=== PATIENT | male | born 1975 | race Caucasian/White ===

== ENCOUNTER 2017-03-06 07:17 | Inpatient (IN) | payer BC, OTHER ==
[~2017-03-06] VITALS: Ht 182.9 cm; Wt 98.3 kg
[~2017-03-06 07:17] MED LIST: DIPH25TA2 PO; MULT-506 PO; SENN8.6T7 PO
[2017-03-06] MEDS ORDERED: ONDANSETRON INJ 2 MG/ML 2 ML VIAL IV STA (07:35)
[2017-03-06] MEDS ORDERED: HYDROmorphone INJ 1 MG/ML SYR IV STA (07:35)
[2017-03-06] MEDS ORDERED: SODIUM CHLORIDE 0.9% 1000ML 1,000 ML IV STA (07:35)
[2017-03-06] MEDS ORDERED: NAPR1TAB9 PO (07:39)
--- NOTE | 2017-03-06 08:25 | EMERGENCY ROOM VISIT NOTE ---
History Report prepared by Sarah: Kenia Mclaughlin Under the Supervision of: Dr. Richardson Scherer M.D. First contact with patient: 07:27 Chief Complaint: ABDOMINAL PAIN Stated Complaint: GALL BLADDER PAIN,VOMITING Nursing Triage Summary: pt reports abdominal pain that started at 0200 with NV and pain that radiates into back , vomitted x 1 pt reports taking aleve around 0600 with non relief pt with cholecystectomy 10/23 was told that about 10% of gallbladder was left DT inflammation History of Present Illness The patient is a 41 year old male who presents to the Emergency Room with complaints of persistent abdominal pain starting last night. He rates his discomfort as a 9/10 in severity. He has pain in his abdomen and up between his shoulder blades. He took Aleve which did not give him significant relief. He has vomiting. He denies any fever, swelling in the legs, or rash. He has some pain with deep breathing. He has had a cholecystectomy in the past at which time part of his gallbladder was left in. He states that the pain is similar to the pain then. He denies any history of heart issues. Source of History: patient Onset: last night Position: abdomen Symptom Intensity: 9/10 Quality: other (pain) Timing: other (persistent) Modifying Factors (Worsening): breathing Associated Symptoms: + vomiting, No fevers, No rash Note: Pt denies swelling in legs. Review of Systems See HPI for pertinent positives & negatives. A total of 10 systems reviewed and were otherwise negative. Past Medical & Surgical Medical Problems: (1) Cholecystitis (2) Cholelithiasis (3) Epigastric abdominal pain (4) No pertinent past medical history Surgical Problems: (1) No pertinent past surgical history Family History Hypertension Social History Smoking Status: Current Every Day Smoker Drug Use: none Marital Status: Occupation Status: employed Current/Historical Medications Scheduled PRN Naproxen (Aleve), 220 MG PO UD PRN for Pain Allergies Coded Allergies: No Known Allergies (Unverified , 03/06/17) Physical Exam Vital Signs Date Time Temp Pulse Resp B/P Pulse Ox O2 Delivery O2 Flow Rate FiO2 03/06/17 10:04 95 Room Air 03/06/17 09:26 52 20 150/68 95 Room Air 03/06/17 08:26 52 20 134/81 94 Room Air 03/06/17 08:08 56 20 146/89 97 Room Air 03/06/17 07:22 36.4 60 18 144/86 96 Room Air Physical Exam GENERAL: Patient is uncomfortable appearing and in moderate distress. HEENT: No acute trauma, normocephalic atraumatic, mucous membranes moist, no nasal congestion, no scleral icterus. NECK: No stridor, no adenopathy, no meningismus, trachea is midline. LUNGS: No dyspnea. Clear to auscultation and equal bilaterally. No wheeze, no rhonchi. HEART: Regular rate and rhythm. No murmurs, rubs, gallops appreciated. ABDOMEN: Moderate epigastric/RUQ tenderness to palpation with partial guarding, no peritonitis. BACK: No midline tenderness, no CVA tenderness EXTREMITIES: Normal motion all extremities, no cyanosis, no edema. NEUROLOGIC: Alert and oriented, no acute motor or sensory deficits, no focal weakness, cranial nerves grossly intact. SKIN: No rash, no jaundice, no diaphoresis. Medical Decision & Procedures ER Provider Diagnostic Interpretation: Radiology results and stated below per my review and radiologist interpretation: ABDOMINAL ULTRASOUND, RIGHT UPPER QUADRANT HISTORY: epigastric pain. Partial cholecystectomy 5 months ago. COMPARISON: Abdominal ultrasound 10/27/2016. FINDINGS: Pancreas: The pancreas demonstrates a normal echotexture. Liver: The liver is echogenic consistent with fatty change. Gallbladder: The patient has reportedly had a partial cholecystectomy. The residual gallbladder is identified. This contains sludge and a few gallstones. Dominant stone at the neck of the gallbladder measures 1.7 cm. No gallbladder wall thickening at this time. CBD: 5 mm. Right kidney: No hydronephrosis. IMPRESSION: 1. The patient has reportedly had a partial cholecystectomy. The residual gallbladder is identified and contains sludge and a few gallstones. Dominant stone is located at the neck of the gallbladder and measures 1.7 cm. 2. Hepatic steatosis. Electronically signed by: Lito León M.D. 03/06/2017 9:30 AM Dictated Date/Time: 03/06/2017 9:27 AM Laboratory Results 03/06/17 08:00 Red Blood Count 6.05, Mean Corpuscular Volume 82.3, Mean Corpuscular Hemoglobin 30.9, Mean Corpuscular Hemoglobin Concent 37.6, Mean Platelet Volume 9.6, Neutrophils (%) (Auto) 85.3, Lymphocytes (%) (Auto) 9.5, Monocytes (%) (Auto) 4.3, Eosinophils (%) (Auto) 0.6, Basophils (%) (Auto) 0.2, Neutrophils # (Auto) 7.70, Lymphocytes # (Auto) 0.86, Monocytes # (Auto) 0.39, Eosinophils # (Auto) 0.05, Basophils # (Auto) 0.02 03/06/17 08:00 Test 03/06/17 08:00 White Blood Count 9.03 K/uL (4.8-10.8) Red Blood Count 6.05 M/uL (4.7-6.1) Hemoglobin 18.7 g/dL (14.0-18.0) Hematocrit 49.8 % (42-52) Mean Corpuscular Volume 82.3 fL (80-100) Mean Corpuscular Hemoglobin 30.9 pg (25-34) Mean Corpuscular Hemoglobin Concent 37.6 g/dl (32-36) Platelet Count 201 K/uL (130-400) Mean Platelet Volume 9.6 fL (7.4-10.4) Neutrophils (%) (Auto) 85.3 % Lymphocytes (%) (Auto) 9.5 % Monocytes (%) (Auto) 4.3 % Eosinophils (%) (Auto) 0.6 % Basophils (%) (Auto) 0.2 % Neutrophils # (Auto) 7.70 K/uL (1.4-6.5) Lymphocytes # (Auto) 0.86 K/uL (1.2-3.4) Monocytes # (Auto) 0.39 K/uL (0.11-0.59) Eosinophils # (Auto) 0.05 K/uL (0-0.5) Basophils # (Auto) 0.02 K/uL (0-0.2) RDW Standard Deviation 36.9 fL (36.4-46.3) RDW Coefficient of Variation 12.4 % (11.5-14.5) Immature Granulocyte % (Auto) 0.1 % Immature Granulocyte # (Auto) 0.01 K/uL (0.00-0.02) Microcytosis PRESENT Spherocytes 1+ Urine Color YELLOW Urine Appearance CLEAR (CLEAR) Urine pH 7.5 (4.5-7.5) Urine Specific [place] 1.022 (1.000-1.030) Urine Protein NEG (NEG) Urine Glucose (UA) NEG (NEG) Urine Ketones NEG (NEG) Urine Occult Blood NEG (NEG) Urine Nitrite NEG (NEG) Urine Bilirubin NEG (NEG) Urine Urobilinogen NEG (NEG) Urine Leukocyte Esterase NEG (NEG) Urine WBC (Auto) 0 /hpf (0-5) Urine RBC (Auto) 0-4 /hpf (0-4) Urine Hyaline Casts (Auto) 1-5 /lpf (0-5) Urine Epithelial Cells (Auto) 5-10 /lpf (0-5) Urine Bacteria (Auto) NEG (NEG) Anion Gap 8.0 mmol/L (3-11) Est Creatinine Clear Calc Drug Dose 129.6 ml/min Estimated GFR () 119.4 Estimated GFR (Non- 103.0 BUN/Creatinine Ratio 21.2 (10-20) Calcium Level 9.1 mg/dl (8.5-10.1) Total Bilirubin 2.9 mg/dl (0.2-1) Direct Bilirubin 0.3 mg/dl (0-0.2) Aspartate Amino Transf (AST/SGOT) 47 U/L (15-37) Alanine Aminotransferase (ALT/SGPT) 109 U/L (12-78) Alkaline Phosphatase 100 U/L (45-117) Troponin I < 0.015 ng/ml (0-0.045) Total Protein 7.7 gm/dl (6.4-8.2) Albumin 4.6 gm/dl (3.4-5.0) Lipase 111 U/L (73-393) Laboratory results as reviewed by me. Medications Administered Medications (Trade) Dose Ordered Sig/Niki Route Start Time Stop Time Status Last Admin Dose Admin Hydromorphone HCl (Dilaudid Inj) 1 mg NOW STAT IV 03/06/17 07:35 03/06/17 07:36 DC 03/06/17 07:35 1 MG Ondansetron HCl 4 mg 4 mg NOW STAT IV 03/06/17 07:35 03/06/17 07:36 DC 03/06/17 07:35 4 MG Sodium Chloride (Nss 1000ml) 1,000 ml @ 999 mls/hr Q1H1M STAT IV 03/06/17 07:35 03/06/17 08:35 DC 03/06/17 07:35 999 MLS/HR Cefoxitin Sodium (Mefoxin IV) 2,000 mg NOW STAT IV 03/06/17 09:49 03/06/17 09:50 DC 03/06/17 09:49 2,000 MG ECG Indication: abdominal pain Rate (beats per minute): 52 Rhythm: sinus bradycardia Findings: no acute ischemic change, no ectopy ED Course 0730: The patient was evaluated in room B9. A complete history and physical exam was performed. 0735: NSS 1000 ml @ 999 mls/hr IV, Zofran Inj 4 mg IV, Dilaudid Inj 1 mg IV. 0944: I discussed the patient's case with Dr. Herring, [facility] [place] Surgery. He thinks the patient should be brought in medically and seen by GI to see if they can get the stone. If not, he will see the patient. 0949: Mefoxin IV 2000 mg IV. 0954: Upon reevaluation, the patient is feeling better. He declines any pain medications currently. I discussed results and treatment plan with the patient. He verbalized understanding and agreement with the treatment plan. The patient will be evaluated for further management. 1007: I discussed the patient's case with Dr. Watson, [facility] hospitalist. The patient will be evaluated for further treatment and disposition. Medical Decision Differential: Cholecystitis, Gallbladder disfunction, Hepatic Disfunction, Gastritis/PUD, Pancreatitis, ACS, Aortic Pathology, amongst other pathologies entertained. 41 yr old male arrives with complaint of RUQ abdominal pain 5 months post partial-cholecystomy secondary to cholecystitis. Moderate distress here with no evidence sepsis and feeling much better after dilaudid. Moderate Bili elevation though history of Gilbert may muddy this a bit, though with elevated ALT I have some concern this is early cholecystitis. I feel this is blocked GB duct from the 1.7 cm stone that was seen on US. Clearly will need further work- up. Given empiric ABX. Discussed with Surgery and Hospitalist (who will bring him in). No evidence ACS nor dissection. Other labs look OK. Consults Time Called: [phone] Consulting Physician: Dr. Herring, [facility] General Surgery Returned Call: [phone] I discussed the patient's case with him. He thinks the patient should be brought in medically and seen by GI to see if they can get the stone. If not, he will see the patient. Additional Consults: Time Called: [phone] Consulted Physician: Dr. Watson, [facility] hospitalist Returned Call: [phone] Additional Comments: Discussed the patient's case. The patient will be evaluated for further treatment and disposition. Impression Primary Impression: Choledocholithiasis Additional Impression: Elevated liver enzymes Scribe Attestation The scribe's documentation has been prepared under my direction and personally reviewed by me in its entirety. I confirm that the note above accurately reflects all work, treatment, procedures, and medical decision making performed by me. Departure Information Dispostion Being Evaluated By Hospitalist Referrals No Doctor, Assigned (PCP) Patient Instructions My [facility] Problem Qualifiers
[2017-03-06 08:46] LABS: URINE APPEARANCE CLEAR (CLEAR); URINE BILIRUBIN NEG (NEG); URINE COLOR YELLOW; URINE NITRITE NEG (NEG); URINE PH 7.5 (4.5-7.5); URINE SPECIFIC GRAVITY 1.022 (1.000-1.030); UROBILINOGEN NEG (NEG); ZZUR CULT IF INDIC CLEAN CATCH NO
[2017-03-06 08:51] LABS: HEMATOCRIT 49.8 % (42-52); MEAN CELL VOLUME 82.3 fL (80-100); MEAN CORPUSCULAR HEMOGLOBIN 30.9 pg (25-34); MEAN CORPUSCULAR HGB CONC 37.6 g/dl (32-36); MEAN PLATELET VOLUME 9.6 fL (7.4-10.4); PLATELET COUNT 201 K/uL (130-400); RED BLOOD COUNT 6.05 M/uL (4.7-6.1); WHITE BLOOD COUNT 9.03 K/uL (4.8-10.8)
[2017-03-06 08:53] LABS: MANUAL MICROSCOPIC REQUIRED? NO; REVIEW REQ? NO
[2017-03-06 08:57] LABS: BASO % 0.2 %; BASO ABS # 0.02 K/uL (0-0.2); COMPLETE YES; EOS % 0.6 %; IG% 0.1 %; LYMPH % 9.5 %; LYMPH ABS # 0.86 K/uL (1.2-3.4); MICROCYTOSIS PRESENT; MONO % 4.3 %; NEUT % 85.3 %; SPHEROCYTE 1+
[2017-03-06 09:00] LABS: ALT/SGPT 109 U/L (12-78); BLOOD UREA NITROGEN 20 mg/dl (7-18); BUN/CREATININE RATIO 21.2 (10-20); CARBON DIOXIDE 28 mmol/L (21-32); CHLORIDE 103 mmol/L (98-107); CREATININE 0.93 mg/dl (0.60-1.40); GLUCOSE 106 mg/dl (70-99); POTASSIUM 3.6 mmol/L (3.5-5.1); SODIUM 139 mmol/L (136-145)
[2017-03-06 09:05] LABS: ALKALINE PHOSPHATASE 100 U/L (45-117); AST/SGOT 47 U/L (15-37)
[2017-03-06 09:06] LABS: CALCIUM 9.1 mg/dl (8.5-10.1)
--- NOTE | 2017-03-06 09:31 | DIAGNOSTIC IMAGING REPORT ---
ABDOMINAL ULTRASOUND, RIGHT UPPER QUADRANT HISTORY: epigastric pain. Partial cholecystectomy 5 months ago. COMPARISON: Abdominal ultrasound 10/27/2016. FINDINGS: Pancreas: The pancreas demonstrates a normal echotexture. Liver: The liver is echogenic consistent with fatty change. Gallbladder: The patient has reportedly had a partial cholecystectomy. The residual gallbladder is identified. This contains sludge and a few gallstones. Dominant stone at the neck of the gallbladder measures 1.7 cm. No gallbladder wall thickening at this time. CBD: 5 mm. Right kidney: No hydronephrosis. IMPRESSION: 1. The patient has reportedly had a partial cholecystectomy. The residual gallbladder is identified and contains sludge and a few gallstones. Dominant stone is located at the neck of the gallbladder and measures 1.7 cm. 2. Hepatic steatosis. Electronically signed by: Lito León M.D. 03/06/2017 9:30 AM Dictated Date/Time: 03/06/2017 9:27 AM
[2017-03-06] MEDS ORDERED: CEFOXITIN SOD 2 GM VIAL IV STA (09:49)
[2017-03-06 10:04] VITALS: O2SAT 95; Ht 182.9 cm; Wt 98.3 kg
--- NOTE | 2017-03-06 10:39 | History and Physical ---
History & Physical Date & Time of Service: Mar 06, 2017 at 10:26 Chief Complaint: Gall Bladder Pain,Vomiting Primary Care Physician: No Doctor, Assigned History of Present Illness Source: patient, spouse 41yo male with h/o subtotal cholecystectomy in 10/2016 who presents with abdominal pain that awoke him about 0200 this AM. The pain was located in the high epigastric area and radiated to the back/ scapula area. It was associated with nausea. He took alleve for the pain and unfortunately, about 0330, he had emesis. The pain has been constant since that time and feels quite similar to when he had his biliary pain last year. No chest pain or dyspnea. No fever or chills. He and his family ate at a fast food restaurant last pm. Past Medical/Surgical History PMH: 1. gallstones 2. asthma - mild, intermittent PSH: 1. subtotal cholecystectomy 2. 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) Multi-Drug Resistant Organisms History of MDRO: No Allergies Coded Allergies: No Known Allergies (Unverified , 03/06/17) Home Medications Scheduled PRN Naproxen (Aleve), 220 MG PO UD PRN for Pain Review of Systems Constitutional: + chills (in the ER), No fatigue, No fever, No weakness, No weight loss Eyes: No worsening of vision ENT: No nasal symptoms, No sore throat, No trouble swallowing Respiratory: No cough, No dyspnea at rest, No dyspnea on exertion Cardiovascular: No PND, No chest pain, No edema, No orthopnea Abdomen: + diarrhea (since he had cholecystectomy ), + nausea, + pain, + vomiting, No GI bleeding, No constipation Genitourinary - Male: No dysuria Neurologic: No numbness/tingling Psychiatric: No anxiety, No depression symptoms Endocrine: No fatigue Hematologic / Lymphatic: No abnormal bleeding/bruising Integumentary: No rash Physical Exam Vital Signs Date Time Temp Pulse Resp B/P Pulse Ox O2 Delivery O2 Flow Rate FiO2 03/06/17 10:04 95 Room Air 03/06/17 09:26 52 20 150/68 95 Room Air 03/06/17 08:26 52 20 134/81 94 Room Air 03/06/17 08:08 56 20 146/89 97 Room Air 03/06/17 07:22 36.4 60 18 144/86 96 Room Air General Appearance: WD/WN, no apparent distress Head: normocephalic, atraumatic Eyes: PERRL, sclerae normal (no icterus) ENT: hearing grossly normal, TMs normal, pharynx normal Neck: supple, no adenopathy, thyroid normal, no JVD Respiratory/Chest: lungs clear, normal breath sounds, no respiratory distress, no accessory muscle use Cardiovascular: no gallop, no murmur, normal peripheral pulses, + bradycardia Abdomen/GI: normal bowel sounds, soft, no organomegaly, + tenderness (high epigastric region), + pertinent finding (negative Paul's sign) Back: normal inspection Extremities/Musculoskelatal: no pedal edema Neurologic/Psych: no motor/sensory deficits, alert, normal mood/affect, normal reflexes, oriented x 3 Skin: normal color (no jaundice), no rash Lymphatic: no adenopathy (cervical ) Diagnostics Laboratory Results Results Past 24 Hours Test 03/06/17 08:00 Range/Units White Blood Count 9.03 4.8-10.8 K/uL Red Blood Count 6.05 4.7-6.1 M/uL Hemoglobin 18.7 14.0-18.0 g/dL Hematocrit 49.8 42-52 % Mean Corpuscular Volume 82.3 80-100 fL Mean Corpuscular Hemoglobin 30.9 25-34 pg Mean Corpuscular Hemoglobin Concent 37.6 32-36 g/dl Platelet Count 201 130-400 K/uL Mean Platelet Volume 9.6 7.4-10.4 fL Neutrophils (%) (Auto) 85.3 % Lymphocytes (%) (Auto) 9.5 % Monocytes (%) (Auto) 4.3 % Eosinophils (%) (Auto) 0.6 % Basophils (%) (Auto) 0.2 % Neutrophils # (Auto) 7.70 1.4-6.5 K/uL Lymphocytes # (Auto) 0.86 1.2-3.4 K/uL Monocytes # (Auto) 0.39 0.11-0.59 K/uL Eosinophils # (Auto) 0.05 0-0.5 K/uL Basophils # (Auto) 0.02 0-0.2 K/uL RDW Standard Deviation 36.9 36.4-46.3 fL RDW Coefficient of Variation 12.4 11.5-14.5 % Immature Granulocyte % (Auto) 0.1 % Immature Granulocyte # (Auto) 0.01 0.00-0.02 K/uL Microcytosis PRESENT Spherocytes 1+ Urine Color YELLOW Urine Appearance CLEAR CLEAR Urine pH 7.5 4.5-7.5 Urine Specific [place] 1.022 1.000-1.030 Urine Protein NEG NEG Urine Glucose (UA) NEG NEG Urine Ketones NEG NEG Urine Occult Blood NEG NEG Urine Nitrite NEG NEG Urine Bilirubin NEG NEG Urine Urobilinogen NEG NEG Urine Leukocyte Esterase NEG NEG Urine WBC (Auto) 0 0-5 /hpf Urine RBC (Auto) 0-4 0-4 /hpf Urine Hyaline Casts (Auto) 1-5 0-5 /lpf Urine Epithelial Cells (Auto) 5-10 0-5 /lpf Urine Bacteria (Auto) NEG NEG Sodium Level 139 136-145 mmol/L Potassium Level 3.6 3.5-5.1 mmol/L Chloride Level 103 98-107 mmol/L Carbon Dioxide Level 28 21-32 mmol/L Anion Gap 8.0 3-11 mmol/L Blood Urea Nitrogen 20 7-18 mg/dl Creatinine 0.93 0.60-1.40 mg/dl Est Creatinine Clear Calc Drug Dose 129.6 ml/min Estimated GFR () 119.4 Estimated GFR (Non- 103.0 BUN/Creatinine Ratio 21.2 10-20 Random Glucose 106 70-99 mg/dl Calcium Level 9.1 8.5-10.1 mg/dl Total Bilirubin 2.9 0.2-1 mg/dl Direct Bilirubin 0.3 0-0.2 mg/dl Aspartate Amino Transf (AST/SGOT) 47 15-37 U/L Alanine Aminotransferase (ALT/SGPT) 109 12-78 U/L Alkaline Phosphatase 100 45-117 U/L Troponin I < 0.015 0-0.045 ng/ml Total Protein 7.7 6.4-8.2 gm/dl Albumin 4.6 3.4-5.0 gm/dl Lipase 111 73-393 U/L Diagnostic Radiology gall bladder u/s: IMPRESSION: 1. The patient has reportedly had a partial cholecystectomy. The residual gallbladder is identified and contains sludge and a few gallstones. Dominant stone is located at the neck of the gallbladder and measures 1.7 cm. 2. Hepatic steatosis. EKG EKG: my reading - sinus bradycardia early repolarization (minimal J-point elevation) no ST changes no LVH by voltage criteria Impression Assessment and Plan 41yo male with h/o mild, intermittent asthma and subtotal cholecystectomy in 2015 presenting with abdominal pain and other GI symptoms concerning for biliary colic. LFTs are elevated but these appear chronically elevated (and there is no record of repeat LFTs following his surgery in October 2016 to check his overall trend ). His symptoms/signs are concerning for acute cholecystitis of the remaining portion of his gall bladder. 1. suspected biliary colic / concern of acute cholecystitis - NPO, IVF, pain meds, IV antibiotic therapy. Check blood cultures due to the chills he had in the ER. Gen surg consultation. MRCP now. He may need GI consultation depending on results of the MRCP. 2. h/o mild, intermittent asthma - not in exacerbation. Make albuterol available to him on prn basis. 3. FEN - NPO, IVF w/ D5NS with KCL at 150cc/hr. Repeat CMP in AM. 4. polycythemia - repeat CBC in am. Due to hemoconcentration? 5. DVT proph - SCDs for now until his care plan is fully defined. 6. elevated BP w/o dx of HTN - in 10/2016 he had multiple high BP readings. It simply may be due to pain but will need to follow carefully. no voltage criteria for LVH on EKG to suggest long-standing, untreated HTN. 7. abnormal LFTs - records indicate a history of Gilbert's syndrome and the elevated t. bili may be due to such. Transaminase elevation could be biliary related or due to his fatty liver. Regardless will recheck in AM. 8. Due to NPO status will place on pepcid IV q12h. Place on med/surg floor. updated at bedside. Level of Care Med/Surg Advanced Directives Existing Living Will: No Existing Power of Spoon Maker: No Resuscitation Status FULL RESUSCITATION VTE Prophylaxis Risk Level: Low Given or contraindicated: SCD's Note total visit time 60 minutes Additional Copies To Steffen Herring M.D.
[2017-03-06] MEDS ORDERED: ONDANSETRON INJ 2 MG/ML 2 ML VIAL IV PRN (11:00)
[2017-03-06] MEDS ORDERED: ALBUTEROL 0.083% NEBU SOLN 3 ML VIAL INH PRN (11:45)
[2017-03-06 12:13] VITALS: BP 158/98; PULSE 62; TEMP 36.6; O2SAT 93
[2017-03-06 12:34] VITALS: O2SAT 98
--- NOTE | 2017-03-06 12:39 | DIAGNOSTIC IMAGING REPORT ---
MRCP HISTORY: Right upper quadrant abdominal pain. check for CBD stone, etc TECHNIQUE: MRCP of the abdomen was performed according to standard departmental protocol without the use of contrast. COMPARISON STUDY: MRCP 10/27/2016. FINDINGS: There is a small amount pericholecystic edema/inflammatory change. There is a 2.2 cm stone at the neck of the gallbladder. Normal caliber common bile duct. No filling defects within the common bile duct. The main pancreatic duct is normal in course and caliber. No intrahepatic bile duct dilatation. Small T2 hyperintense lesion within the right hepatic lobe which measures 1 cm. This favors a cyst. The adrenal glands, kidneys, and pancreas are unremarkable. There are surgical clips adjacent to the gallbladder. Spleen is mildly enlarged measuring 15 cm in length. This is similar to the prior study. The common bile duct measures 5 mm in diameter. IMPRESSION: 1. There is a 2.2 cm stone at the neck of the gallbladder which could be impacted. There is associated pericholecystic edema/inflammatory change. Therefore, these findings are highly suspicious for acute cholecystitis. 2. Normal caliber common bile duct. No stones identified within the common bile duct. 3. Splenomegaly is again noted. Electronically signed by: Lito León M.D. 03/06/2017 12:37 PM Dictated Date/Time: 03/06/2017 12:33 PM
[2017-03-06] MEDS: D5NSS + 20MEQ KCL 1,000 ML IV SCH ×2 (13:15→21:05)
[2017-03-06] MEDS: AMPICILLIN/SULBACTAM SOD INJ 3,000 MG in SODIUM CHLORIDE 0.9% 100ML 100 ML IV SCH ×2 (13:15→19:48)
[2017-03-06] MEDS: HYDROmorphone INJ 0.5 MG/0.5 ML SYR IV PRN ×2 (13:59→21:07)
[2017-03-06 14:50] VITALS: BP 150/85; PULSE 58; TEMP 36.6; O2SAT 96
[2017-03-06] MEDS: FAMOTIDINE IV INJ 20 MG in DEXTROSE 5% 100ML 100 ML IV SCH (16:18)
[2017-03-06 19:24] VITALS: BP 153/92; PULSE 84; TEMP 36.6; O2SAT 98
[2017-03-06 23:23] VITALS: BP 146/96; PULSE 58; TEMP 36.6; O2SAT 96
[2017-03-07] MEDS: AMPICILLIN/SULBACTAM SOD INJ 3,000 MG in SODIUM CHLORIDE 0.9% 100ML 100 ML IV SCH ×4 (01:32→20:07)
[2017-03-07] MEDS: FAMOTIDINE IV INJ 20 MG in DEXTROSE 5% 100ML 100 ML IV SCH ×2 (03:54→15:42)
--- NOTE | 2017-03-07 04:58 | CONSULTATION REPORT ---
DATE OF CONSULTATION: 03/06/2017 SUMMARY: This is a 41-year-old gentleman that I was called early this morning from the ER where he presented with what appeared to be an acute cholecystitis with elevated liver function test. From the ER Description, patient has had a laparoscopic subtotal cholecystectomy due to significant inflammatory response in there. This was in October 2016. I asked him to admitted to the medical service, making sure there was no need for an ERCP ahead of time since his liver enzymes are elevated with a total bilirubin of 2.9 only, direct was 0.3. There was a question that he may have had Gilbert disease in the past. He was admitted to the medical service and we were consulted. As I see him now, Ruben is in no acute distress. His story was that he had an acute cholecystitis back in October [address] Dumont laparoscopically, but apparently with significant inflammatory tissue that he did a subtotal cholecystectomy at that time. An attempted cholangiogram was done, but I looked the films and there was no evidence of any visualization of the common bile duct by that test. He apparently has been well since then until he started having excruciating pain similar to what he has gallbladder earlier last evening. 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 FAMILY HISTORY: Hypertension. PAST SURGICAL HISTORY: As intermittent asthma and he had left knee arthroscopy. SOCIAL HISTORY: He is a never smoker and drinker. He lives in [place] with his family. ALLERGIES: He has no known allergies. MEDICATIONS: The only medicine he takes is an occasional anti-inflammatory agent. PHYSICAL EXAMINATION: GENERAL: As I see him now, he is resting comfortably in bed in no real distress. VITAL SIGNS: His last vitals showed a temperature of 36.6, pulse 58, respirations 18, blood pressure 150/85. HEAD: Normocephalic. EYES: PERRLA. Sclerae nonicteric. NECK: No cervical lymphadenopathy. HEART: Normal sinus. LUNGS: Clear. ABDOMEN: The supraumbilical incisions from the laparoscopic area has healed well as the other trocar site. He has no tenderness at this time. EXTREMITIES: Grossly normal. LABORATORY STUDY: They came in last night showed him WBC 9.03, does have a left shift. Chemistries as stated. The alkaline phosphatase was normal. He did undergo an MRCP at this time which showed no evidence of any common bile duct stones, but he does have a 2.2 cm stone in the neck of the gallbladder which confirmed the ultrasound findings. At this point, I discussed with patient that he will need the remaining and complete a cholecystectomy. It is nothing urgent that needs to be done at this time and actually he feels pretty good at this time, he was considering may be going home and schedule as an outpatient. At this point he is hungry, I will start him on some liquids tonight and see how he does by tomorrow. If tomorrow his clinical picture improves such then he certainly can be discharged on some antibiotics and follow up with Dr. Dumont in the office to make arrangements to proceed with further surgery. If he still has some pain then he should come here and I will discuss with Dr. Dumont on Wednesday morning and turn it over to his service. But at this time, there is nothing surgically that needs to be done. ELIANA
[2017-03-07 05:53] LABS: BASO % 0.4 %; BASO ABS # 0.03 K/uL (0-0.2); COMPLETE YES; EOS % 4.1 %; HEMATOCRIT 45.9 % (42-52); IG% 0.1 %; LYMPH % 17.1 %; LYMPH ABS # 1.37 K/uL (1.2-3.4); MEAN CELL VOLUME 83.9 fL (80-100); MEAN CORPUSCULAR HEMOGLOBIN 30.3 pg (25-34); MEAN CORPUSCULAR HGB CONC 36.2 g/dl (32-36); MEAN PLATELET VOLUME 9.1 fL (7.4-10.4); NEUT % 68.3 %; PLATELET COUNT 180 K/uL (130-400); RED BLOOD COUNT 5.47 M/uL (4.7-6.1)
[2017-03-07 06:25] LABS: BUN/CREATININE RATIO 14.2 (10-20); CREATININE 0.95 mg/dl (0.60-1.40); POTASSIUM 3.7 mmol/L (3.5-5.1)
[2017-03-07 06:31] LABS: ALB/GLOB RATIO 1.2 (0.9-2)
[2017-03-07 07:34] VITALS: BP 138/84; PULSE 56; TEMP 36.5; O2SAT 96
--- NOTE | 2017-03-07 09:55 | SURGERY PROGRESS NOTE ---
DATE: 03/07/2017 Ruben is still having some pain in the right upper quadrant, epigastric, and between the shoulder, although greatly improved. His last vitals showed a temperature of 36.5, pulse 56, respirations 17, blood pressure 138/84, O2 sats 94 on room air. He is tolerating some liquids. The abdomen is soft. He does have some deep right upper quadrant tenderness. It is my recommendation for him to stay here today, keep him n.p.o. after midnight, discuss the situation with Dr. Dumont and I would recommend proceeding with a completion cholecystectomy. I will leave that decision to Dr. Dumont/in the morning. The patient is agreeable to this.
--- NOTE | 2017-03-07 10:42 | Progress Note ---
Subjective Date of Service: Mar 07, 2017. Subjective Pt evaluation today including: conversation w/ patient, physical exam, lab review, review of studies, review of inpatient medication list Sitting OOBTC, tolerating po intake, clears liquid diet. Has some RUQ discomfort but not significant. Afebrile. Otherwise, no chest pain, no sob, no urinary symptoms. Problem List Medical Problems: (1) Choledocholithiasis Status: Acute (2) Elevated liver enzymes Status: Acute (3) Epigastric abdominal pain Status: Acute Review of Systems All Other Systems: Reviewed and Negative Medications Albuterol Sulfate (Ventolin 0.083% 2.5MG/3ML Neb) 2.5 mg Q4R PRN INH; Start at 11:45; Stop 04/05/17 at 11:44 Ampicillin Sodium/ Sulbactam Sodium/ Sodium Chloride (Unasyn Inj/Nss 100ml) 108 ml @ 200 mls/hr Q6@0200,0800,1400,2000 IV Last administered on 03/07/17 13:57 ; Admin Dose 200 MLS/HR; Start 03/06/17 at 14:00; Stop 03/16/17 at 13:59 Famotidine 20 mg/ Dextrose 102 ml @ 200 mls/hr Q12H IV Last administered on 03:54; Admin Dose 200 MLS/HR; Start 03/06/17 at 16:00; Stop 04/05/17 at 15:59 Hydromorphone HCl 0.5 mg 0.5 mg Q3H PRN IV Last administered on 03/06/17 21:07 ; Admin Dose 0.5 MG; Start 03/06/17 at 11:00; Stop 03/20/17 at 10:59 Ondansetron HCl (Zofran Inj) 4 mg Q6H PRN IV; Start 03/06/17 at 11:00; Stop at 10:59 Oxycodone/ Acetaminophen (Percocet 5-325mg Tab) 1 tab Q4H PRN PO; Start at 18:00; Stop 03/20/17 at 17:59 Potassium Chloride/Dextrose/ Sod Cl 1,000 ml @ 75 mls/hr [id number] IV Last administered on 03/07/17 10:49; Admin Dose 75 MLS/HR; Start 03/06/17 at 13:15; Stop 04/05/17 at 13:14 Objective Vital Signs Date Time Temp Pulse Resp B/P Pulse Ox O2 Delivery O2 Flow Rate FiO2 03/07/17 08:00 Room Air 03/07/17 07:34 36.5 56 17 138/84 96 Room Air 03/06/17 23:45 Room Air 03/06/17 23:23 36.6 58 16 146/96 96 Room Air 03/06/17 19:24 36.6 84 18 153/92 98 Room Air 03/06/17 16:10 Room Air 03/06/17 14:50 36.6 58 18 150/85 96 Room Air 03/06/17 12:34 98 Room Air 03/06/17 12:13 36.6 62 17 158/98 93 Room Air 03/06/17 11:32 76 20 175/85 97 Room Air Physical Exam Comments: nad ,aox3 anicteric, cohrent, fluent speech s1 s2 rrr, no murmurs appreciated ctab no w/r/r abd minimal RUQ tend, soft, nd +BS no LE edema Laboratory Results Last 24 Hours Test 03/07/17 05:20 White Blood Count 8.00 K/uL Red Blood Count 5.47 M/uL Hemoglobin 16.6 g/dL Hematocrit 45.9 % Mean Corpuscular Volume 83.9 fL Mean Corpuscular Hemoglobin 30.3 pg Mean Corpuscular Hemoglobin Concent 36.2 g/dl Platelet Count 180 K/uL Mean Platelet Volume 9.1 fL Neutrophils (%) (Auto) 68.3 % Lymphocytes (%) (Auto) 17.1 % Monocytes (%) (Auto) 10.0 % Eosinophils (%) (Auto) 4.1 % Basophils (%) (Auto) 0.4 % Neutrophils # (Auto) 5.46 K/uL Lymphocytes # (Auto) 1.37 K/uL Monocytes # (Auto) 0.80 K/uL Eosinophils # (Auto) 0.33 K/uL Basophils # (Auto) 0.03 K/uL RDW Standard Deviation 37.9 fL RDW Coefficient of Variation 12.5 % Immature Granulocyte % (Auto) 0.1 % Immature Granulocyte # (Auto) 0.01 K/uL Sodium Level 141 mmol/L Potassium Level 3.7 mmol/L Chloride Level 106 mmol/L Carbon Dioxide Level 32 mmol/L Anion Gap 3.0 mmol/L Blood Urea Nitrogen 14 mg/dl Creatinine 0.95 mg/dl Est Creatinine Clear Calc Drug Dose 126.8 ml/min Estimated GFR () 116.4 Estimated GFR (Non- 100.4 BUN/Creatinine Ratio 14.2 Random Glucose 97 mg/dl Calcium Level 8.0 mg/dl Total Bilirubin 4.3 mg/dl Direct Bilirubin 0.2 mg/dl Aspartate Amino Transf (AST/SGOT) 28 U/L Alanine Aminotransferase (ALT/SGPT) 82 U/L Alkaline Phosphatase 82 U/L Total Protein 6.5 gm/dl Albumin 3.6 gm/dl Globulin 2.9 gm/dl Albumin/Globulin Ratio 1.2 Lipase 100 U/L ABDOMINAL ULTRASOUND, RIGHT UPPER QUADRANT HISTORY: epigastric pain. Partial cholecystectomy 5 months ago. COMPARISON: Abdominal ultrasound 10/27/2016. FINDINGS: Pancreas: The pancreas demonstrates a normal echotexture. Liver: The liver is echogenic consistent with fatty change. Gallbladder: The patient has reportedly had a partial cholecystectomy. The residual gallbladder is identified. This contains sludge and a few gallstones. Dominant stone at the neck of the gallbladder measures 1.7 cm. No gallbladder wall thickening at this time. CBD: 5 mm. Right kidney: No hydronephrosis. IMPRESSION: 1. The patient has reportedly had a partial cholecystectomy. The residual gallbladder is identified and contains sludge and a few gallstones. Dominant stone is located at the neck of the gallbladder and measures 1.7 cm. 2. Hepatic steatosis. MRCP HISTORY: Right upper quadrant abdominal pain. check for CBD stone, etc TECHNIQUE: MRCP of the abdomen was performed according to standard departmental protocol without the use of contrast. COMPARISON STUDY: MRCP 10/27/2016. FINDINGS: There is a small amount pericholecystic edema/inflammatory change. There is a 2.2 cm stone at the neck of the gallbladder. Normal caliber common bile duct. No filling defects within the common bile duct. The main pancreatic duct is normal in course and caliber. No intrahepatic bile duct dilatation. Small T2 hyperintense lesion within the right hepatic lobe which measures 1 cm. This favors a cyst. The adrenal glands, kidneys, and pancreas are unremarkable. There are surgical clips adjacent to the gallbladder. Spleen is mildly enlarged measuring 15 cm in length. This is similar to the prior study. The common bile duct measures 5 mm in diameter. IMPRESSION: 1. There is a 2.2 cm stone at the neck of the gallbladder which could be impacted. There is associated pericholecystic edema/inflammatory change. Therefore, these findings are highly suspicious for acute cholecystitis. 2. Normal caliber common bile duct. No stones identified within the common bile duct. 3. Splenomegaly is again noted. Assessment and Plan 1. Cholecystitis - s/p partial cholecystectomy in Oct 2016 - MRCP as above - LFTs improving except for T Bili - tolerating some po - IVF, unasyn IV - await Dr. Dumont's recs 2. Splenomegaly - unclear etiology 3. Asthma -stable - prn nebs 4. dvt ppx enoxaparin
[2017-03-07] MEDS: D5NSS + 20MEQ KCL 1,000 ML IV SCH (10:49)
[2017-03-07 15:20] VITALS: BP 130/82; PULSE 57; TEMP 36.4; O2SAT 97
[2017-03-07 16:51] LABS: INR 1.1 (0.9-1.1); PARTIAL THROMBOPLASTIN RATIO 1.2; PROTHROMBIN TIME (PATIENT) 12.2 SECONDS (9.0-12.0)
[2017-03-07] MEDS ORDERED: ENOXAPARIN 40 MG/0.4 ML SYR SQ SCH (21:00)
[2017-03-08] MEDS: AMPICILLIN/SULBACTAM SOD INJ 3,000 MG in SODIUM CHLORIDE 0.9% 100ML 100 ML IV SCH ×4 (01:37→21:04)
[2017-03-08] MEDS: D5NSS + 20MEQ KCL 1,000 ML IV SCH ×2 (01:38→13:54)
[2017-03-08 01:52] VITALS: BP 127/83; PULSE 55; TEMP 36.6; O2SAT 98
[2017-03-08] MEDS: FAMOTIDINE IV INJ 20 MG in DEXTROSE 5% 100ML 100 ML IV SCH ×2 (03:59→15:30)
[2017-03-08 06:07] LABS: INR 1.2 (0.9-1.1); PROTHROMBIN TIME (PATIENT) 12.4 SECONDS (9.0-12.0)
[2017-03-08 06:29] LABS: BUN/CREATININE RATIO 9.6 (10-20); CALCIUM 8.4 mg/dl (8.5-10.1); CREATININE 0.99 mg/dl (0.60-1.40); POTASSIUM 3.5 mmol/L (3.5-5.1)
[2017-03-08 06:31] LABS: ALB/GLOB RATIO 1.2 (0.9-2)
[2017-03-08 07:47] VITALS: BP 134/87; PULSE 50; TEMP 36.8; O2SAT 98
--- NOTE | 2017-03-08 10:25 | History and Physical ---
History & Physical Date & Time of Service: March 08, 2017 at 10:05 Chief Complaint: Cholecystitis Primary Care Physician: No Doctor, Assigned History of Present Illness Source: patient, spouse 41yo male with h/o subtotal cholecystectomy in 10/2016 who presents with abdominal pain that awoke him about 0200 this AM. The pain was located in the high epigastric area and radiated to the back/ scapula area. It was associated with nausea. He took alleve for the pain and unfortunately, about 0330, he had emesis. The pain has been constant since that time and feels quite similar to when he had his biliary pain last year. No chest pain or dyspnea. No fever or chills. He and his family ate at a fast food restaurant last pm. I saw and did H/P on pt, and reviewed MRCP, now, pt feels better, less pain, no nausea, no vomiting. 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) Multi-Drug Resistant Organisms History of MDRO: No Allergies Coded Allergies: No Known Allergies (Unverified , 03/06/17) Home Medications Scheduled PRN Naproxen (Aleve), 220 MG PO UD PRN for Pain Review of Systems Constitutional: No chills, No fatigue, No fever, No problem reported, No sweats , No weakness, No weight loss Eyes: No diplopia, No discharge, No eye pain, No problem reported, No redness, No worsening of vision ENT: No dental problems, No hearing loss, No nasal symptoms, No problem reported, No sore throat, No tinnitus, No trouble swallowing, No unusual epistaxis Respiratory: No cough, No dyspnea at rest, No dyspnea on exertion, No hemoptysis, No problem reported, No shortness of breath, No sputum, No wheezing Cardiovascular: No PND, No chest pain, No claudication, No edema, No orthopnea , No palpitations, No problem reported Abdomen: + nausea, + pain Musculoskeletal: No calf pain, No joint pain, No muscle pain, No problem reported, No swelling Neurologic: No balance problems, No memory loss, No numbness/tingling, No paralysis, No problem reported, No vertigo, No weakness Psychiatric: No anhedonism, No anxiety, No depression symptoms, No insomnia, No problem reported, No substance abuse Endocrine: No excessive thirst, No excessive urination, No fatigue, No problem reported Physical Exam Vital Signs Date Time Temp Pulse Resp B/P Pulse Ox O2 Delivery O2 Flow Rate FiO2 03/08/17 07:50 Room Air 03/08/17 07:47 36.8 50 16 134/87 98 Room Air 03/08/17 01:52 36.6 55 16 127/83 98 Room Air 03/07/17 23:40 Room Air 03/07/17 15:35 Room Air 03/07/17 15:20 36.4 57 18 130/82 97 Room Air General Appearance: WD/WN, no apparent distress Head: normocephalic, atraumatic Eyes: PERRL, sclerae normal (no icterus) ENT: hearing grossly normal, TMs normal, pharynx normal Neck: supple, no adenopathy, thyroid normal, no JVD Respiratory/Chest: lungs clear, normal breath sounds, no respiratory distress, no accessory muscle use Cardiovascular: no gallop, no murmur, normal peripheral pulses, + bradycardia ( RUQ, no rebound pain) Abdomen/GI: normal bowel sounds, soft, no organomegaly, + tenderness (high epigastric region), + pertinent finding (negative Paul's sign) Back: normal inspection Extremities/Musculoskelatal: no pedal edema Neurologic/Psych: no motor/sensory deficits, alert, normal mood/affect, normal reflexes, oriented x 3 Skin: normal color (no jaundice), no rash Lymphatic: no adenopathy (cervical ) Diagnostics Laboratory Results Results Past 24 Hours Test 03/07/17 16:15 03/08/17 05:11 03/08/17 09:56 Range/Units Prothrombin Time 12.2 12.4 9.0-12.0 SECONDS Prothromb Time International Ratio 1.1 1.2 0.9-1.1 Activated Partial Thromboplast Time 30.2 21.0-31.0 SECONDS Partial Thromboplastin Ratio 1.2 Sodium Level 144 136-145 mmol/L Potassium Level 3.5 3.5-5.1 mmol/L Chloride Level 108 98-107 mmol/L Carbon Dioxide Level 32 21-32 mmol/L Anion Gap 4.0 3-11 mmol/L Blood Urea Nitrogen 10 7-18 mg/dl Creatinine 0.99 0.60-1.40 mg/dl Est Creatinine Clear Calc Drug Dose 121.7 ml/min Estimated GFR () 110.7 Estimated GFR (Non- 95.5 BUN/Creatinine Ratio 9.6 10-20 Random Glucose 87 70-99 mg/dl Calcium Level 8.4 8.5-10.1 mg/dl Total Bilirubin 4.1 0.2-1 mg/dl Aspartate Amino Transf (AST/SGOT) 28 15-37 U/L Alanine Aminotransferase (ALT/SGPT) 73 12-78 U/L Alkaline Phosphatase 79 45-117 U/L Total Protein 6.6 6.4-8.2 gm/dl Albumin 3.6 3.4-5.0 gm/dl Globulin 3.0 2.5-4.0 gm/dl Albumin/Globulin Ratio 1.2 0.9-2 Diagnostic Radiology MRCP HISTORY: Right upper quadrant abdominal pain. check for CBD stone, etc TECHNIQUE: MRCP of the abdomen was performed according to standard departmental protocol without the use of contrast. COMPARISON STUDY: MRCP 10/27/2016. FINDINGS: There is a small amount pericholecystic edema/inflammatory change. There is a 2.2 cm stone at the neck of the gallbladder. Normal caliber common bile duct. No filling defects within the common bile duct. The main pancreatic duct is normal in course and caliber. No intrahepatic bile duct dilatation. Small T2 hyperintense lesion within the right hepatic lobe which measures 1 cm. This favors a cyst. The adrenal glands, kidneys, and pancreas are unremarkable. There are surgical clips adjacent to the gallbladder. Spleen is mildly enlarged measuring 15 cm in length. This is similar to the prior study. The common bile duct measures 5 mm in diameter. IMPRESSION: 1. There is a 2.2 cm stone at the neck of the gallbladder which could be impacted. There is associated pericholecystic edema/inflammatory change. Therefore, these findings are highly suspicious for acute cholecystitis. 2. Normal caliber common bile duct. No stones identified within the common bile duct. 3. Splenomegaly is again noted. Impression Assessment and Plan IMP: S/P lap subtotal cholecystectomy, remain stone on remain gallbladder Plan, I recommend to do laparoscopic cholecystectomy, possible open, D/W benefits, risks and alternatives of the procedure, the risks- infection, bleeding, injury CBD, bowel, biliary leak, may need ERCP, , pt uand his understood, they agree with the plan, I answered all questions, ASA Classification: ASA Class II Advanced Directives Existing Living Will: No Existing Power of Client Technical Professional: No VTE Prophylaxis VTE Risk Assessment Done? Y/N: Yes Risk Level: Low Given or contraindicated: SCD's
--- NOTE | 2017-03-08 10:48 | Hospitalist Progress Note ---
Hospitalist Progress Note Date of Service March 08, 2017. Subjective Pt evaluation today including: conversation w/ patient, conversation w/ family , physical exam, chart review, lab review, review of studies, review of inpatient medication list Patient seen and evaluated. No acute events overnight. He continues to have some mild right upper quadrant tenderness that is manageable and has not been requiring pain medication. He denies nausea or vomiting. He denies fever/chills. He says he feels well. Evaluated by Dr. Dumont this morning with plans for cholecystectomy with possible open procedure. Surgical intervention planned for Wednesday. Additional Comments: REVIEW OF SYSTEMS: General/Constitutional: Denies fever/chills, fatigue, weakness ENT: Denies visual changes, nasal drainage, hearing loss, sore throat, trouble swallowing Cardiovascular: Denies chest pain, palpitations, edema Respiratory: Denies cough, sputum, SOB, wheezing, orthopnea GI: +RUQ abdominal pain (mild); Denies nausea, vomiting, constipation, diarrhea , melena/hematochezia : Denies dysuria, frequency, hematuria Musculoskeletal: Denies joint/muscle aches, weakness, swelling Neurologic: Denies dizziness/lightheadedness, numbness/tingling, weakness Psychiatric: Deferred Endocrine: Deferred Hematologic/Lymphatic: Denies bleeding/clotting abnormalities Skin: Denies rash, itch, new skin changes, easy bruising Allergy/Immunologic: Deferred Medications Current Inpatient Medications Medications (Trade) Dose Ordered Sig/Niki Route Start Time Stop Time Status Last Admin Dose Admin Ondansetron HCl (Zofran Inj) 4 mg Q6H PRN IV 03/06/17 11:00 04/05/17 10:59 Hydromorphone HCl 0.5 mg 0.5 mg Q3H PRN IV 03/06/17 11:00 03/20/17 10:59 03/06/17 21:07 0.5 MG Famotidine 20 mg/ Dextrose 102 ml @ 200 mls/hr Q12H IV 03/06/17 16:00 04/05/17 15:59 03/08/17 03:59 200 MLS/HR Potassium Chloride/Dextrose/ Sod Cl 1,000 ml @ 75 mls/hr [id number] IV 03/06/17 13:15 04/05/17 13:14 03/08/17 01:38 75 MLS/HR Ampicillin Sodium/ Sulbactam Sodium/ Sodium Chloride (Unasyn Inj/Nss 100ml) 108 ml @ 200 mls/hr Q6@0200,0800,1400,2000 IV 03/06/17 14:00 03/16/17 13:59 03/08/17 08:07 200 MLS/HR Albuterol Sulfate (Ventolin 0.083% 2.5MG/3ML Neb) 2.5 mg Q4R PRN INH 03/06/17 11:45 04/05/17 11:44 Oxycodone/ Acetaminophen (Percocet 5-325mg Tab) 1 tab Q4H PRN PO 03/06/17 18:00 03/20/17 17:59 Enoxaparin Sodium (Lovenox Inj) 40 mg HS SQ 03/07/17 21:00 04/06/17 20:59 03/07/17 20:08 40 MG Objective Vital Signs Date Time Temp Pulse Resp B/P Pulse Ox O2 Delivery O2 Flow Rate FiO2 03/08/17 07:50 Room Air 03/08/17 07:47 36.8 50 16 134/87 98 Room Air 03/08/17 01:52 36.6 55 16 127/83 98 Room Air 03/07/17 23:40 Room Air 03/07/17 15:35 Room Air 03/07/17 15:20 36.4 57 18 130/82 97 Room Air Physical Exam Notes: PHYSICAL EXAM:: General Appearance: WDWN in NAD who is A&O x 3 HEENT: Head is normocephalic/atraumatic; EOMI; PERRLA; Hearing grossly intact; Mucous membranes moist; Pharynx negative for exudate/lesions Neck: Supple; Trachea midline; Neg JVD; Neg lymphadenopathy Heart: RRR with no M/G/R Lungs: CTA in all lung cardenas bilaterally; Respirations unlabored; Neg accessory muscle use Abdomen: Soft, non-tender with mild palpation; non-distended; Positive BS x 4 quadrants; Neg organomegaly Extremities: Capillary refill < 2 seconds; Neg cyanosis or edema Neurological: Speech clear; Gross motor/sensory function intact; Neg focal neurologic deficits Psychiatric: Appropriate mood/affect Skin: Normal Color; Warm/Dry; Neg rashes, ecchymosis, lacerations/ulcerations Laboratory Results Last 24 Hours Test 03/07/17 16:15 03/08/17 05:11 03/08/17 09:56 Prothrombin Time 12.2 SECONDS 12.4 SECONDS Prothromb Time International Ratio 1.1 1.2 Activated Partial Thromboplast Time 30.2 SECONDS Partial Thromboplastin Ratio 1.2 Sodium Level 144 mmol/L Potassium Level 3.5 mmol/L Chloride Level 108 mmol/L Carbon Dioxide Level 32 mmol/L Anion Gap 4.0 mmol/L Blood Urea Nitrogen 10 mg/dl Creatinine 0.99 mg/dl Est Creatinine Clear Calc Drug Dose 121.7 ml/min Estimated GFR () 110.7 Estimated GFR (Non- 95.5 BUN/Creatinine Ratio 9.6 Random Glucose 87 mg/dl Calcium Level 8.4 mg/dl Total Bilirubin 4.1 mg/dl Aspartate Amino Transf (AST/SGOT) 28 U/L Alanine Aminotransferase (ALT/SGPT) 73 U/L Alkaline Phosphatase 79 U/L Total Protein 6.6 gm/dl Albumin 3.6 gm/dl Globulin 3.0 gm/dl Albumin/Globulin Ratio 1.2 Assessment and Plan Mr. Parson is a 41 y/o male with PMHx of S/P Subtotal Cholecystectomy who presents with RUQ abdominal pain. MRCP reveals stone in remaining GB with plans for total cholecystectomy Cholecystitis S/P Subtotal Cholecystectomy (Poor Anatomy Visualization): Plans for Complete Cholecystectomy - LFTs with improvement but T Bili remains elevated - lab today pending - Tolerating current diet - Unasyn 3 g IV q6H - D5 NSS + 20 mEq KCl - Pepcid 20 mg IV BID - General Surgery following - recommendations reviewed - plan for cholecystectomy on Wednesday Splenomegaly - Unclear Etiology Asthma without Exacerbation: Controlled - Nebulizers PRN DVT Prophylaxis: ARY/SCDs/Ambulation Code Status: FULL RESUSCITATION Disposition: Cholecystectomy 03/10/17 Continued [facility] stay due to: multiple IV medications needed Discharge planning: home
[2017-03-08] MEDS ORDERED: HYDROmorphone INJ 1 MG/ML SYR IV PRN (12:15)
[2017-03-08 15:38] VITALS: BP 123/79; PULSE 56; TEMP 36.5; O2SAT 99
[2017-03-08 22:21] VITALS: BP 131/86; PULSE 48; TEMP 36.4; O2SAT 99
[2017-03-08 23:20] VITALS: PULSE 51
[2017-03-09] MEDS: AMPICILLIN/SULBACTAM SOD INJ 3,000 MG in SODIUM CHLORIDE 0.9% 100ML 100 ML IV SCH ×4 (01:39→19:38)
[2017-03-09] MEDS: D5NSS + 20MEQ KCL 1,000 ML IV SCH ×2 (02:44→15:45)
[2017-03-09] MEDS: FAMOTIDINE IV INJ 20 MG in DEXTROSE 5% 100ML 100 ML IV SCH ×2 (03:35→16:23)
[2017-03-09 06:51] LABS: BUN/CREATININE RATIO 8.9 (10-20); CALCIUM 8.7 mg/dl (8.5-10.1); POTASSIUM 3.6 mmol/L (3.5-5.1)
[2017-03-09 06:53] LABS: ALB/GLOB RATIO 1.2 (0.9-2)
[2017-03-09 07:15] VITALS: BP 114/82; PULSE 50; TEMP 36.4; O2SAT 99
--- NOTE | 2017-03-09 10:56 | Surgery Progress Note ---
Surgery Progress Note Date of Service March 09, 2017. Subjective Post OP Day: HD # 3 + diet, + feeling well, + pain controlled, No SOB, No chest pain, No complaints Objective Vital Signs: Date Time Temp Pulse Resp B/P Pulse Ox O2 Delivery O2 Flow Rate FiO2 03/09/17 07:15 36.4 50 15 114/82 99 Room Air 03/09/17 07:00 Room Air 03/08/17 23:20 51 03/08/17 23:20 Room Air 03/08/17 22:21 36.4 48 16 131/86 99 Room Air 03/08/17 15:38 36.5 56 18 123/79 99 Room Air 03/08/17 15:15 Room Air General Appearance: WD/WN, no apparent distress Head: normocephalic, atraumatic Neck: trachea midline Respiratory/Chest: no respiratory distress, no accessory muscle use Abdomen: non tender, non distended, soft Laboratory Results: Results Past 24 Hours Test 03/09/17 05:21 Range/Units Sodium Level 142 136-145 mmol/L Potassium Level 3.6 3.5-5.1 mmol/L Chloride Level 105 98-107 mmol/L Carbon Dioxide Level 31 21-32 mmol/L Anion Gap 6.0 3-11 mmol/L Blood Urea Nitrogen 9 7-18 mg/dl Creatinine 1.00 0.60-1.40 mg/dl Est Creatinine Clear Calc Drug Dose 120.5 ml/min Estimated GFR () 109.4 Estimated GFR (Non- 94.4 BUN/Creatinine Ratio 8.9 10-20 Random Glucose 90 70-99 mg/dl Calcium Level 8.7 8.5-10.1 mg/dl Total Bilirubin 4.3 0.2-1 mg/dl Aspartate Amino Transf (AST/SGOT) 31 15-37 U/L Alanine Aminotransferase (ALT/SGPT) 74 12-78 U/L Alkaline Phosphatase 77 45-117 U/L Total Protein 6.7 6.4-8.2 gm/dl Albumin 3.6 3.4-5.0 gm/dl Globulin 3.1 2.5-4.0 gm/dl Albumin/Globulin Ratio 1.2 0.9-2 Lipase 113 73-393 U/L Assessment & Plan History of partial cholecystectomy in October 2016 Presented to hospital with RUQ abdominal pain similar to pain prior to cholecystectomy US and MRCP showing 2.2 cm gallstone in the neck of gallbladder Total bilirubin 4.3 History of Gilbert Syndrome?? Total bilirubin in October 2016 was also elevated - no leukocytosis - pain minimal - afebrile Plan: Plan for Laparoscopic cholecystectomy tomorrow morning at 7 am. NPO after midnight Continue current management per medicine Dr. Dumont has seen patient and agrees with above assessment
[2017-03-09 15:00] VITALS: BP 119/71; PULSE 56; TEMP 36.5; O2SAT 98
--- NOTE | 2017-03-09 15:39 | Progress Note ---
Subjective Date of Service: March 09, 2017. Subjective Pt evaluation today including: conversation w/ patient, physical exam, conversation w/ energy sales consultant, review of inpatient medication list Pain: no pain PO Intake: adequate Voiding: no voiding problems no issues, awaiting OR tomorrow AM Problem List Medical Problems: (1) Choledocholithiasis Status: Acute (2) Elevated liver enzymes Status: Acute (3) Epigastric abdominal pain Status: Acute Review of Systems All Other Systems: Reviewed and Negative Medications Current Inpatient Medications Medications (Trade) Dose Ordered Sig/Niki Route Start Time Stop Time Status Last Admin Dose Admin Ondansetron HCl 4 mg 4 mg Q6H PRN IV 03/06/17 11:00 04/05/17 10:59 Famotidine 20 mg/ Dextrose 102 ml @ 200 mls/hr Q12H IV 03/06/17 16:00 04/05/17 15:59 03/09/17 03:35 200 MLS/HR Potassium Chloride/Dextrose/ Sod Cl 1,000 ml @ 75 mls/hr [id number] IV 03/06/17 13:15 04/05/17 13:14 03/09/17 02:44 75 MLS/HR Ampicillin Sodium/ Sulbactam Sodium/ Sodium Chloride (Unasyn Inj/Nss 100ml) 108 ml @ 200 mls/hr Q6@0200,0800,1400,2000 IV 03/06/17 14:00 03/16/17 13:59 03/09/17 14:38 200 MLS/HR Albuterol Sulfate (Ventolin 0.083% 2.5MG/3ML Neb) 2.5 mg Q4R PRN INH 03/06/17 11:45 04/05/17 11:44 Oxycodone/ Acetaminophen (Percocet 5-325mg Tab) 1 tab Q4H PRN PO 03/06/17 18:00 03/20/17 17:59 Hydromorphone HCl (Dilaudid Inj) 0.5 mg Q3H PRN IV 03/08/17 12:15 03/20/17 10:59 Objective Vital Signs Date Time Temp Pulse Resp B/P Pulse Ox O2 Delivery O2 Flow Rate FiO2 03/09/17 15:00 36.5 56 17 119/71 98 Room Air 03/09/17 07:15 36.4 50 15 114/82 99 Room Air 03/09/17 07:00 Room Air 03/08/17 23:20 51 03/08/17 23:20 Room Air 03/08/17 22:21 36.4 48 16 131/86 99 Room Air Physical Exam General Appearance: WD/WN, no apparent distress Eyes: normal inspection, EOMI, sclerae normal ENT: normal ENT inspection, hearing grossly normal, pharynx normal Neck: supple, no adenopathy, no JVD, trachea midline Respiratory/Chest: chest non-tender, lungs clear, normal breath sounds, no respiratory distress, no accessory muscle use Cardiovascular: regular rate, rhythm, no edema, no gallop, no JVD, no murmur Abdomen: normal bowel sounds, non tender, soft, no organomegaly Extremities: normal range of motion, non-tender, normal inspection, no pedal edema, no calf tenderness Neurologic/Psychiatric: glass bender II-XII nml as tested, no motor/sensory deficits, alert, normal mood/affect, oriented x 3 Skin: normal color, warm/dry, no rash Lymphatic: no adenopathy Laboratory Results Last 24 Hours Test 03/09/17 05:21 Sodium Level 142 mmol/L Potassium Level 3.6 mmol/L Chloride Level 105 mmol/L Carbon Dioxide Level 31 mmol/L Anion Gap 6.0 mmol/L Blood Urea Nitrogen 9 mg/dl Creatinine 1.00 mg/dl Est Creatinine Clear Calc Drug Dose 120.5 ml/min Estimated GFR () 109.4 Estimated GFR (Non- 94.4 BUN/Creatinine Ratio 8.9 Random Glucose 90 mg/dl Calcium Level 8.7 mg/dl Total Bilirubin 4.3 mg/dl Aspartate Amino Transf (AST/SGOT) 31 U/L Alanine Aminotransferase (ALT/SGPT) 74 U/L Alkaline Phosphatase 77 U/L Total Protein 6.7 gm/dl Albumin 3.6 gm/dl Globulin 3.1 gm/dl Albumin/Globulin Ratio 1.2 Lipase 113 U/L Assessment and Plan Mr. Parson is a 41 y/o male with PMHx of S/P Subtotal Cholecystectomy who presents with RUQ abdominal pain. MRCP reveals stone in remaining GB with plans for total cholecystectomy Cholecystitis S/P Subtotal Cholecystectomy (Poor Anatomy Visualization): Plans for Complete Cholecystectomy on 03/10 at 7am - LFTs with improvement but T Bili remains elevated - could have Gilbert's syndrome? - Tolerating current diet - Unasyn 3 g IV q6H Splenomegaly - Unclear Etiology Asthma without Exacerbation: Controlled - Nebulizers PRN DVT Prophylaxis: ARY/SCDs/Ambulation Code Status: FULL RESUSCITATION Continued [facility] stay due to: multiple IV medications needed Discharge planning: home
--- NOTE | 2017-03-09 15:54 | Anesthesiology Progress Note ---
Anesthesia Progress Note Date of Service March 09, 2017. Progress Notes This is a 41y/o w male w/ cholelithiasis + cholecystitis for a Laparoscopic cholecystectomy. PMHx is only sig. for stable mild asthma.Discussed anesthesia w /pt.,risks vs benefits,all questions answered. Informed consent obtained.
[2017-03-09 23:40] VITALS: BP 121/72; PULSE 50; TEMP 36.5; O2SAT 98
[2017-03-10] VITALS (9 sets, daily range): BP systolic 120–136; BP diastolic 72–87; PULSE 55–74; TEMP 36.5–36.8; O2SAT 92–99
[2017-03-10] MEDS: AMPICILLIN/SULBACTAM SOD INJ 3,000 MG in SODIUM CHLORIDE 0.9% 100ML 100 ML IV SCH ×4 (01:59→18:24)
[2017-03-10] MEDS: FAMOTIDINE IV INJ 20 MG in DEXTROSE 5% 100ML 100 ML IV SCH ×2 (03:38→19:21)
[2017-03-10] MEDS: D5NSS + 20MEQ KCL 1,000 ML IV SCH (05:33)
[2017-03-10 05:57] LABS: HEMATOCRIT 43.4 % (42-52); MEAN CELL VOLUME 83.5 fL (80-100); MEAN CORPUSCULAR HGB CONC 37.1 g/dl (32-36); MEAN PLATELET VOLUME 9.4 fL (7.4-10.4); PLATELET COUNT 178 K/uL (130-400); WHITE BLOOD COUNT 4.48 K/uL (4.8-10.8)
[2017-03-10] MEDS ORDERED: BACITRACIN OINT 15 GM TUBE ONE (06:51)
[2017-03-10] MEDS ORDERED: LIDOCAINE HCL 1% 20 ML VIAL ONE (06:51)
[2017-03-10] MEDS ORDERED: BUPIVACAINE 0.5 % 5 MG/1 ML MPF 30ML VIAL ONE (06:52)
[2017-03-10] MEDS ORDERED: ROCURONIUM BROMIDE 10 MG/ML 5 ML VIAL ONE ×2 (06:53→07:38)
[2017-03-10] MEDS ORDERED: LIDOCAINE HCL 2% 2 ML VIAL (20MG/ML) ONE (06:53)
[2017-03-10] MEDS ORDERED: GLYCOPYRROLATE INJ 0.2 MG/ML VIAL ONE (06:53)
[2017-03-10] MEDS ORDERED: ONDANSETRON INJ 2 MG/ML 2 ML VIAL ONE (06:53)
[2017-03-10] MEDS ORDERED: DEXAMETHASONE SOD INJ 4 MG/ML VIAL ONE (06:53)
[2017-03-10] MEDS ORDERED: FENTANYL CITRATE INJ 50 MCG/1 ML 2 ML VIAL ONE ×2 (06:53→07:44)
[2017-03-10] MEDS ORDERED: PROPOFOL IV EMULSION 10 MG/ML 20 ML VIAL IV ONE (06:53)
[2017-03-10] MEDS ORDERED: MIDAZOLAM HCL 1 MG/ML 2ML VIAL ONE (06:53)
[2017-03-10] MEDS ORDERED: NEOSTIGMINE METHYLSULFATE 5 MG/5 ML SYR ONE (06:53)
[2017-03-10] MEDS ORDERED: CEFAZOLIN IV 2,000 MG/60 ML D5W IV SCH (07:00)
[2017-03-10] MEDS ORDERED: CEFAZOLIN IV 2,000 MG/60 ML D5W IV ONE (07:05)
--- NOTE | 2017-03-10 07:05 | History & Physical Bridge Note ---
H&P Re-Evaluation Bridge Note: I have examined the patient, reviewed the History & Physical and in the interval since the performance of the History & Physical I have noted the following changes of clinical significance: No changes noted
[2017-03-10] MEDS ORDERED: HydrALAZINE HCL 20 MG/ML VIAL ONE (07:51)
[2017-03-10] MEDS ORDERED: ONDANSETRON INJ 2 MG/ML 2 ML VIAL IV PRN (08:00)
[2017-03-10] MEDS ORDERED: EpHEDrine SULFATE INJ 50 MG/ML AMP IV PRN (08:00)
[2017-03-10] MEDS ORDERED: ATROPINE SULFATE 0.1 MG/ML 5ML SYR IV PRN (08:00)
[2017-03-10] MEDS ORDERED: HYDROmorphone INJ 2 MG/ML SYR/VIAL IV PRN (08:00)
[2017-03-10] MEDS ORDERED: PHENYLEPHRINE 100MCG/ML 5ML SYR IV PRN (08:00)
[2017-03-10] MEDS ORDERED: KETOROLAC TROMETHAMINE 30 MG/ML VIAL ONE (10:03)
--- NOTE | 2017-03-10 10:33 | [facility] Post Operative Brief Note ---
Immediate Operative Summary Operative Date March 10, 2017. Pre-Operative Diagnosis Cholecystitis and Cholelithiasis s/p laparoscopic Subtotal Cholecystectomy Post-Operative Diagnosis Same as preoperative Procedure(s) Performed Laparoscopic Cholecystectomy for residule gallbladder Surgeon Dr. Manjula Dumont Customer Experience Strategist Surgeon(s) None per surgeon Estimated Blood Loss 30ML Findings significant inflammation with gallbladder wall edema, Mirizzi syndrom Specimens A.) Gallbladder and contents Drains none Anesthesia general Complication(s) None Disposition Recovery Room / PACU
--- NOTE | 2017-03-10 10:57 | Anesthesiology Progress Note ---
Anesthesia Post Op Note Date & Time March 10, 2017 at 10:57 Vital Signs Pain Intensity: 0 Vital Signs Past 12 Hours Date Time Temp Pulse Resp B/P Pulse Ox O2 Delivery O2 Flow Rate FiO2 03/10/17 10:50 63 16 150/82 97 Mask 5 03/10/17 10:40 63 16 159/87 97 Mask 10 03/10/17 10:32 37.1 60 16 149/79 98 Mask 10 03/10/17 05:59 36.5 55 16 136/84 99 Room Air 03/09/17 23:40 36.5 50 14 121/72 98 Room Air Notes Mental Status: alert / awake / arousable, participated in evaluation Pt Amnestic to Procedure: Yes Nausea / Vomiting: adequately controlled Pain: adequately controlled Airway Patency, RR, SpO2: stable & adequate BP & HR: stable & adequate Hydration State: stable & adequate Anesthetic Complications: no major complications apparent
--- NOTE | 2017-03-10 11:10 | Surgery Progress Note ---
Surgery Progress Note Date of Service March 10, 2017. Subjective F/U S/P lap cholecystectomy for remnant partial gallbladder, pt is doing fine, good control pain, no nausea, no vomiting, Objective Vital Signs: Date Time Temp Pulse Resp B/P Pulse Ox O2 Delivery O2 Flow Rate FiO2 03/10/17 11:00 36.5 64 16 134/79 97 Nasal Cannula 3 03/10/17 10:50 63 16 150/82 97 Mask 5 03/10/17 10:40 63 16 159/87 97 Mask 10 03/10/17 10:32 37.1 60 16 149/79 98 Mask 10 03/10/17 05:59 36.5 55 16 136/84 99 Room Air 03/09/17 23:40 36.5 50 14 121/72 98 Room Air 03/09/17 19:15 Room Air 03/09/17 15:40 Room Air 03/09/17 15:00 36.5 56 17 119/71 98 Room Air General Appearance: WD/WN Head: normocephalic Neck: supple, no JVD Respiratory/Chest: chest non-tender, lungs clear Cardiovascular: regular rate, rhythm, no edema, no gallop Abdomen: normal bowel sounds, non distended, soft, + tenderness Incision(s): clean, dry, intact Extremities: normal range of motion, non-tender, normal inspection Laboratory Results: Results Past 24 Hours Test 03/10/17 05:31 Range/Units White Blood Count 4.48 4.8-10.8 K/uL Red Blood Count 5.20 4.7-6.1 M/uL Hemoglobin 16.1 14.0-18.0 g/dL Hematocrit 43.4 42-52 % Mean Corpuscular Volume 83.5 80-100 fL Mean Corpuscular Hemoglobin 31.0 25-34 pg Mean Corpuscular Hemoglobin Concent 37.1 32-36 g/dl RDW Standard Deviation 37.3 36.4-46.3 fL RDW Coefficient of Variation 12.3 11.5-14.5 % Platelet Count 178 130-400 K/uL Mean Platelet Volume 9.4 7.4-10.4 fL Creatinine 1.00 0.60-1.40 mg/dl Est Creatinine Clear Calc Drug Dose 120.5 ml/min Estimated GFR () 109.4 Estimated GFR (Non- 94.4 Assessment & Plan IMP: S/P laparoscopic cholecystectomy for remain partial gallbladder pt is doing fine, continue treatment, march D/C home tomorrow, repeat labs in am, CBC, CMP, full liquids
[2017-03-10] MEDS ORDERED: NURSING VERBAL MED ORDER ONE (11:30)
[2017-03-10] MEDS: D5W AND 1/2NSS + 20MEQ KCL 1,000 ML IV SCH (11:54)
--- NOTE | 2017-03-10 12:23 | OPERATIVE REPORT ---
DATE OF OPERATION: 03/10/2017 PREOPERATIVE DIAGNOSES: Post stat laparoscopy subtotal cholecystectomy, acute cholecystitis, cholelithiasis. POSTOPERATIVE DIAGNOSIS: Same. PROCEDURES: Laparoscopy, cholecystectomy for residual gallbladder. SURGEON: Dr. Manjula Dumont. ANESTHESIA: General. ESTIMATED BLOOD LOSS: About 30 mL. FINDINGS: Residual gallbladder with large gallstones. The gallbladder was significant inflammation, edema. COMPLICATIONS: None. INDICATIONS FOR THE PROCEDURE: This is a 41-year-old gentleman who had a laparoscopic subtotal cholecystectomy for difficult gallbladder disease about 5 months ago and now patient come back with acute cholecystitis, cholelithiasis remaining gallbladder inflammation and gallstones. The patient required to do laparoscopy cholecystectomy for residual gallbladder, possible open, possible cholangiogram. I did talk to the patient and patient's about the benefit and risk, alternate procedure. I indicated the risks may include but not limited such as bleeding, infection, injury to common bile duct, injury to bowel, may need ERCP, bile leak, even incisional hernia, even . They understand. The patient signed informed consent. I answered all questions. DETAILS OF PROCEDURE: We brought the patient to the OR, put the patient in the supine position. The patient received SCD on bilateral legs to prevent DVT. Also, the patient received 2 grams Ancef IV for prophylactic antibiotic. The patient received general anesthesia without difficulty. The abdomen was prepped and draped in routine sterile fashion. After a timeout, I injected local anesthesia the epigastric area and based on the patient has old incision above umbilical made a 2 cm incision epigastric area, opened fascia, opened peritoneum. Under direct vision I put a Elizabeth trocar in, connected to CO2 to create pneumoperitoneum. Flow rate at 6 liter per minute. Pressure not more than 14 mmHg. Once we get a nice pneumoperitoneum, we put a 10 mm camera in, looked around the abdomen and then we put another two 5 mm trocar on the right upper quadrant, another 10 mm trocar in the umbilical area. Then we used scope to look around the abdomen shows no more findings on the stomach, small bowel, large bowel and liver; however, significant omentum covers the residual gallbladder and gallbladder showed significant contracted inflammation and fibrosis, edema. Then I mobilized the gallbladder. The cystic duct was identified and then put two 10 mm metal clips on the proximal cystic duct, one on the distal cystic duct. I then used scissor transection the cystic duct, cystic artery was identified and mobilized. Then I used a 5 mm metal clip on the proximal cystic artery. Based on the patient had a very large gallstone in the neck of the gallbladder cause the patient Mirizzi syndrome. Then I used Bovie to take down the gallbladder from liver bed. Rechecked no active bleeding, no bile leak, then we put catch bag up to remove the gallbladder. Then we reinserted Elizabeth trocar to create pneumoperitoneum and again looked around the abdomen, saw no bile leak, no active bleeding from the liver bed. Then we removed all the trocars under direct vision. No active bleeding. Then we closed the epigastric incision, fascial layer figure-of-8 x2 by using #1 Vicryl and closed subcutaneous layer by using 2-0 Vicryl interrupted and then closed skin by using 4-0 Vicryl. The umbilical incision closed fashion using #1 Vicryl [id number] x1 and closed subcutaneous layer by using 2-0 Vicryl, closed skin by using 4-0 Vicryl, another two 5 mm trocar site closed skin only by using 4-0 Vicryl. Then we put the dressing on. The patient tolerated the procedure well. After the procedure, the patient transferred to recovery room in stable condition. All the instrument, needle and sponge count correct x2 at the end of case. The specimen sent to pathology. After the procedure, I did talk to the patient's about the OR finding and procedure we did. She understands. I attest to the content of the Intraoperative Record and any orders documented therein. Any exceptions are noted below. ELIANA
--- NOTE | 2017-03-10 12:56 | Hospitalist Progress Note ---
Hospitalist Progress Note Date of Service March 10, 2017. Subjective Pt evaluation today including: conversation w/ patient, physical exam, chart review, lab review, review of studies, review of inpatient medication list Patient seen and evaluated. He is status post cholecystectomy today. He reports pain is adequately controlled at this time. Only complaint is of a dry scratchy throat and hoarse voice. Additional Comments: REVIEW OF SYSTEMS: General/Constitutional: Denies fever/chills, fatigue, weakness ENT: +hoarse voice; +dry mouth; Denies visual changes, nasal drainage, hearing loss, trouble swallowing Cardiovascular: Denies chest pain, palpitations, edema Respiratory: Denies cough, sputum, SOB, wheezing, orthopnea GI: +abdominal pain - incision site - well controlled; Denies nausea, vomiting, constipation, diarrhea, melena/hematochezia : Denies dysuria, frequency, hematuria Musculoskeletal: Denies joint/muscle aches, weakness, swelling Neurologic: Denies dizziness/lightheadedness, numbness/tingling, weakness Psychiatric: Deferred Endocrine: Deferred Hematologic/Lymphatic: Denies bleeding/clotting abnormalities Skin: Denies rash, itch, new skin changes, easy bruising Allergy/Immunologic: Deferred Medications Current Inpatient Medications Medications (Trade) Dose Ordered Sig/Niki Route Start Time Stop Time Status Last Admin Dose Admin Ondansetron HCl 4 mg 4 mg Q6H PRN IV 03/06/17 11:00 04/05/17 10:59 Famotidine/ Dextrose (Pepcid IV Inj/ D5 100ml) 102 ml @ 200 mls/hr Q12H IV 03/06/17 16:00 04/05/17 15:59 03/10/17 03:38 200 MLS/HR Albuterol Sulfate (Ventolin 0.083% 2.5MG/3ML Neb) 2.5 mg Q4R PRN INH 03/06/17 11:45 04/05/17 11:44 Oxycodone/ Acetaminophen (Percocet 5-325mg Tab) 1 tab Q4H PRN PO 03/06/17 18:00 03/20/17 17:59 Hydromorphone HCl (Dilaudid Inj) 0.5 mg Q3H PRN IV 03/08/17 12:15 03/20/17 10:59 03/10/17 10:57 0.5 MG Hydromorphone HCl (Dilaudid Inj) 0.5 mg Q5M PRN IV 03/10/17 08:00 03/10/17 13:00 Ondansetron HCl (Zofran Inj) 4 mg ONE PRN IV 03/10/17 08:00 03/10/17 13:00 Ephedrine Sulfate (EpHEDrine SULFATE INJ) 5 mg Q5M PRN IV 03/10/17 08:00 03/10/17 13:00 Atropine Sulfate (Atropine Sulfate 0.1MG/Ml Inj) 0.5 mg Q1M PRN IV 03/10/17 08:00 03/10/17 13:00 Phenylephrine HCl 100 mcg 100 mcg Q5M PRN IV 03/10/17 08:00 03/10/17 13:00 Potassium Chloride/Dextrose/ Sod Cl 1,000 ml @ 75 mls/hr [id number] IV 03/10/17 11:30 04/09/17 11:29 03/10/17 11:54 75 MLS/HR Ampicillin Sodium/ Sulbactam Sodium/ Sodium Chloride (Unasyn Inj/Nss 100ml) 108 ml @ 200 mls/hr Q6H IV 03/10/17 12:00 03/16/17 13:59 03/10/17 11:54 200 MLS/HR Objective Vital Signs Date Time Temp Pulse Resp B/P Pulse Ox O2 Delivery O2 Flow Rate FiO2 03/10/17 12:20 36.5 61 19 133/81 95 Nasal Cannula 3.0 03/10/17 11:57 36.8 60 11 120/80 97 Room Air 03/10/17 11:55 36.8 60 11 120/80 97 Nasal Cannula 3.0 03/10/17 11:20 92 Nasal Cannula 3.0 03/10/17 11:15 79 16 135/83 94 Nasal Cannula 3 03/10/17 11:10 82 16 139/76 94 Nasal Cannula 3 03/10/17 11:00 36.5 64 16 134/79 97 Nasal Cannula 3 03/10/17 10:50 63 16 150/82 97 Mask 5 03/10/17 10:40 63 16 159/87 97 Mask 10 03/10/17 10:32 37.1 60 16 149/79 98 Mask 10 03/10/17 05:59 36.5 55 16 136/84 99 Room Air 03/09/17 23:40 36.5 50 14 121/72 98 Room Air 03/09/17 19:15 Room Air 03/09/17 15:40 Room Air 03/09/17 15:00 36.5 56 17 119/71 98 Room Air Physical Exam Notes: PHYSICAL EXAM:: General Appearance: WDWN in NAD who is A&O x 3 HEENT: Head is normocephalic/atraumatic; Hearing grossly intact; Mucous membranes moist; Pharynx negative for exudate/lesions Neck: Supple; Trachea midline; Neg JVD; Neg lymphadenopathy Heart: RRR with no M/G/R Lungs: CTA in all lung cardenas bilaterally; Respirations unlabored; Neg accessory muscle use Abdomen: Soft, non-distended; Positive BS x 4 quadrants; incisions with dressing clean/dry/intact Extremities: Capillary refill < 2 seconds; Neg cyanosis or edema Neurological: Speech clear; Gross motor/sensory function intact; Neg focal neurologic deficits Psychiatric: Appropriate mood/affect Skin: Normal Color; Warm/Dry; Neg rashes, ecchymosis, lacerations/ulcerations Laboratory Results Last 24 Hours Test 03/10/17 05:31 White Blood Count 4.48 K/uL Red Blood Count 5.20 M/uL Hemoglobin 16.1 g/dL Hematocrit 43.4 % Mean Corpuscular Volume 83.5 fL Mean Corpuscular Hemoglobin 31.0 pg Mean Corpuscular Hemoglobin Concent 37.1 g/dl RDW Standard Deviation 37.3 fL RDW Coefficient of Variation 12.3 % Platelet Count 178 K/uL Mean Platelet Volume 9.4 fL Creatinine 1.00 mg/dl Est Creatinine Clear Calc Drug Dose 120.5 ml/min Estimated GFR () 109.4 Estimated GFR (Non- 94.4 Assessment and Plan Mr. Parson is a 41 y/o male with PMHx of S/P Subtotal Cholecystectomy who presents with RUQ abdominal pain. MRCP reveals stone in remaining GB with plans for total cholecystectomy Cholecystitis S/P Subtotal Cholecystectomy (Poor Anatomy Visualization): S/P Lap Maggi for Remnants of GB - LFTs with improvement but T Bili remains elevated - CMP in AM - Gilbert's syndrome? - Unasyn 3 g IV q6H - Gen Surg following - recommendations reviewed Splenomegaly - Unclear Etiology Asthma without Exacerbation: Controlled - Nebulizers PRN DVT Prophylaxis: ARY/SCDs/Ambulation Code Status: FULL RESUSCITATION Disposition: Probable D/C home tomorrow Continued [facility] stay due to: multiple IV medications needed Discharge planning: home
[2017-03-10] MEDS: OXYCODONE/ACETAMINOPHEN 5-325 TAB PO PRN (21:13)
[2017-03-11] MEDS: AMPICILLIN/SULBACTAM SOD INJ 3,000 MG in SODIUM CHLORIDE 0.9% 100ML 100 ML IV SCH ×2 (00:07→05:26)
[2017-03-11] MEDS: D5W AND 1/2NSS + 20MEQ KCL 1,000 ML IV SCH (00:07)
[2017-03-11] MEDS: FAMOTIDINE IV INJ 20 MG in DEXTROSE 5% 100ML 100 ML IV SCH (03:19)
[2017-03-11] MEDS: OXYCODONE/ACETAMINOPHEN 5-325 TAB PO PRN (03:19)
[2017-03-11 03:30] VITALS: BP 117/67; PULSE 56; TEMP 36.8; O2SAT 96
[2017-03-11 06:15] LABS: BASO % 0.3 %; BASO ABS # 0.03 K/uL (0-0.2); COMPLETE YES; EOS % 0.6 %; HEMATOCRIT 42.8 % (42-52); IG% 0.3 %; LYMPH % 12.3 %; LYMPH ABS # 1.28 K/uL (1.2-3.4); MEAN CELL VOLUME 83.8 fL (80-100); MEAN CORPUSCULAR HEMOGLOBIN 30.7 pg (25-34); MEAN CORPUSCULAR HGB CONC 36.7 g/dl (32-36); MEAN PLATELET VOLUME 9.3 fL (7.4-10.4); NEUT % 78.5 %; PLATELET COUNT 214 K/uL (130-400); RED BLOOD COUNT 5.11 M/uL (4.7-6.1); WHITE BLOOD COUNT 10.37 K/uL (4.8-10.8)
[2017-03-11 06:51] LABS: BUN/CREATININE RATIO 9.3 (10-20); CALCIUM 8.7 mg/dl (8.5-10.1); POTASSIUM 3.6 mmol/L (3.5-5.1)
[2017-03-11 06:56] LABS: ALB/GLOB RATIO 1.2 (0.9-2)
[2017-03-11 07:14] VITALS: BP 143/84; PULSE 59; TEMP 36.6; O2SAT 99
--- NOTE | 2017-03-11 07:51 | Surgery Progress Note ---
Surgery Progress Note Date of Service March 11, 2017. Subjective Post OP Day: 1 + feeling well F/U S/P laparoscopic cholecystectomy for remain partial gallbladder POD 1 pt is doing better, pt tolerated diet, pt denies nausea, no vomiting, Objective Vital Signs: Date Time Temp Pulse Resp B/P Pulse Ox O2 Delivery O2 Flow Rate FiO2 03/11/17 07:14 36.6 59 19 143/84 99 Room Air 03/11/17 03:30 36.8 56 16 117/67 96 Room Air 03/11/17 00:16 Room Air 03/10/17 23:46 36.6 63 16 129/72 95 Room Air 03/10/17 19:55 36.8 64 17 136/76 95 Room Air 03/10/17 15:50 Room Air 03/10/17 14:19 36.5 74 18 136/87 95 Room Air 03/10/17 13:21 61 19 130/77 97 Nasal Cannula 3.0 03/10/17 12:20 36.5 61 19 133/81 95 Nasal Cannula 3.0 03/10/17 11:57 36.8 60 11 120/80 97 Room Air 03/10/17 11:55 36.8 60 11 120/80 97 Nasal Cannula 3.0 03/10/17 11:20 92 Nasal Cannula 3.0 03/10/17 11:15 79 16 135/83 94 Nasal Cannula 3 03/10/17 11:10 82 16 139/76 94 Nasal Cannula 3 03/10/17 11:00 36.5 64 16 134/79 97 Nasal Cannula 3 03/10/17 10:50 63 16 150/82 97 Mask 5 03/10/17 10:40 63 16 159/87 97 Mask 10 03/10/17 10:32 37.1 60 16 149/79 98 Mask 10 General Appearance: WD/WN Head: normocephalic Neck: supple, no JVD Respiratory/Chest: chest non-tender, lungs clear Cardiovascular: regular rate, rhythm, no edema, no gallop, no JVD Abdomen: normal bowel sounds, non distended, soft, + tenderness Incision(s): clean, dry, intact Extremities: normal range of motion, non-tender, normal inspection Laboratory Results: Results Past 24 Hours Test 03/11/17 05:35 Range/Units White Blood Count 10.37 4.8-10.8 K/uL Red Blood Count 5.11 4.7-6.1 M/uL Hemoglobin 15.7 14.0-18.0 g/dL Hematocrit 42.8 42-52 % Mean Corpuscular Volume 83.8 80-100 fL Mean Corpuscular Hemoglobin 30.7 25-34 pg Mean Corpuscular Hemoglobin Concent 36.7 32-36 g/dl Platelet Count 214 130-400 K/uL Mean Platelet Volume 9.3 7.4-10.4 fL Neutrophils (%) (Auto) 78.5 % Lymphocytes (%) (Auto) 12.3 % Monocytes (%) (Auto) 8.0 % Eosinophils (%) (Auto) 0.6 % Basophils (%) (Auto) 0.3 % Neutrophils # (Auto) 8.14 1.4-6.5 K/uL Lymphocytes # (Auto) 1.28 1.2-3.4 K/uL Monocytes # (Auto) 0.83 0.11-0.59 K/uL Eosinophils # (Auto) 0.06 0-0.5 K/uL Basophils # (Auto) 0.03 0-0.2 K/uL RDW Standard Deviation 37.3 36.4-46.3 fL RDW Coefficient of Variation 12.4 11.5-14.5 % Immature Granulocyte % (Auto) 0.3 % Immature Granulocyte # (Auto) 0.03 0.00-0.02 K/uL Sodium Level 141 136-145 mmol/L Potassium Level 3.6 3.5-5.1 mmol/L Chloride Level 107 98-107 mmol/L Carbon Dioxide Level 28 21-32 mmol/L Anion Gap 6.0 3-11 mmol/L Blood Urea Nitrogen 9 7-18 mg/dl Creatinine 1.00 0.60-1.40 mg/dl Est Creatinine Clear Calc Drug Dose 120.5 ml/min Estimated GFR () 109.4 Estimated GFR (Non- 94.4 BUN/Creatinine Ratio 9.3 10-20 Random Glucose 98 70-99 mg/dl Calcium Level 8.7 8.5-10.1 mg/dl Total Bilirubin 3.7 0.2-1 mg/dl Aspartate Amino Transf (AST/SGOT) 39 15-37 U/L Alanine Aminotransferase (ALT/SGPT) 94 12-78 U/L Alkaline Phosphatase 75 45-117 U/L Total Protein 6.7 6.4-8.2 gm/dl Albumin 3.7 3.4-5.0 gm/dl Globulin 3.0 2.5-4.0 gm/dl Albumin/Globulin Ratio 1.2 0.9-2 Assessment & Plan IMP: S/P laparoscopic cholecystectomy for remain partial gallbladder pt is doing fine, D/C home today, keep all dressing on for 4 days, he can take a shower on 03/15/2017, no heavy lifting > 20 LBS for 4 weeks. follow up me in 1 week, . IMP: S/P laparoscopic cholecystectomy for remain partial gallbladder pt is doing fine, continue treatment, may D/C home tomorrow, repeat labs in am, CBC, CMP,
[2017-03-11] MEDS ORDERED: OXYC-57 PO (08:53)
[2017-03-11] MEDS ORDERED: ZFRI4 IV (08:53)
--- NOTE | 2017-03-11 09:04 | Discharge Instructions ---
Discharge Instructions Date of Service March 11, 2017. Admission Reason for Admission: Cholecystitis Discharge Discharge Diagnosis / Problem: Cholecystitis with Cholecystectomy Discharge Goals Goal(s): Decrease discomfort, Improve function, Increase independence Activity Recommendations Activity Limitations: as noted below Lifting - no heaving lifting > 20 lbs for 4 weeks Shower/Bathing - Keep dressings on for 4 days and may shower on 03/15/17 . Instructions / Follow-Up Instructions / Follow-Up Cholecystitis S/P Subtotal Cholecystectomy (October) and S/P Lap Cholecystectomy for Remnants: - During admission your Total Bilirubin levels have stayed mildly elevated. This may be from the gallbladder issues and should trend down. -- If these levels stay mildly elevated it may be a condition called Gilbert' s syndrome which is a condition where the liver does not process bilirubin as adequately - this condition is non-life threatening and is not treated - You will be provided with pain and nausea medication to use as needed - if using pain medication please do not drive a vehicle - You may use Tylenol for pain if you would prefer not to use the Percocet but be aware Percocet does have Tylenol in it so only take the allowed dosing - Restrictions per surgery - No lifting > 20 lbs for 4 weeks - Keep surgical bandages on for 4 days and may shower on 03/15/17 Follow-Up: - Please follow-up with Surgery in one week - Dr. Dumont -- Contact number for Dr. Dumont is [phone] Current Hospital Diet Patient's current hospital diet: Regular Diet Discharge Diet Recommended Diet: Regular Diet Procedures Procedures Performed: Laparoscopic Cholecystectomy for residule gallbladder Pending Studies Studies pending at discharge: yes List of pending studies: Pathology of Gallbladder Medical Emergencies . Who to Call and When: Medical Emergencies: If at any time you feel your situation is an emergency, please call 911 immediately. . Non-Emergent Contact Non-Emergency issues call your: Primary Care Provider Call Non-Emergent contact if: you have a fever, your pain is concerning you, you have any medication questions . . "Provider Documentation" section prepared by Kia Parks. . VTE Core Measure Inpt VTE Proph given/why not?: SCD's
[2017-03-11 11:08] VITALS: BP 143/84; PULSE 59; TEMP 36.6; O2SAT 99
--- NOTE | 2017-03-11 13:50 | Discharge Summary ---
Discharge Summary Date of Service March 11, 2017. Discharge Summary Admission Date: Mar 06, 2017 at 10:59 Discharge Date: March 11, 2017 Discharge Disposition: Home Principal Diagnosis: Cholelithiasis and Acute Cholecytitis S/P Residual Cholecystectomy Problems/Secondary Diagnoses: No pertinent PMHx Procedures: 1. ABDOMINAL ULTRASOUND, RIGHT UPPER QUADRANT Pancreas: The pancreas demonstrates a normal echotexture. Liver: The liver is echogenic consistent with fatty change. Gallbladder: The patient has reportedly had a partial cholecystectomy. The residual gallbladder is identified. This contains sludge and a few gallstones. Dominant stone at the neck of the gallbladder measures 1.7 cm. No gallbladder wall thickening at this time. CBD: 5 mm. Right kidney: No hydronephrosis. IMPRESSION: 1. The patient has reportedly had a partial cholecystectomy. The residual gallbladder is identified and contains sludge and a few gallstones. Dominant stone is located at the neck of the gallbladder and measures 1.7 cm. 2. Hepatic steatosis. 2. MRCP FINDINGS: There is a small amount pericholecystic edema/inflammatory change. There is a 2.2 cm stone at the neck of the gallbladder. Normal caliber common bile duct. No filling defects within the common bile duct. The main pancreatic duct is normal in course and caliber. No intrahepatic bile duct dilatation. Small T2 hyperintense lesion within the right hepatic lobe which measures 1 cm. This favors a cyst. The adrenal glands, kidneys, and pancreas are unremarkable. There are surgical clips adjacent to the gallbladder. Spleen is mildly enlarged measuring 15 cm in length. This is similar to the prior study. The common bile duct measures 5 mm in diameter. IMPRESSION: 1. There is a 2.2 cm stone at the neck of the gallbladder which could be impacted. There is associated pericholecystic edema/inflammatory change. Therefore, these findings are highly suspicious for acute cholecystitis. 2. Normal caliber common bile duct. No stones identified within the common bile duct. 3. Splenomegaly is again noted. Consultations: 1. General Surgery Medication Reconciliation New Medications: Ondansetron (Ondansetron Hcl) 2 Mg/Ml Inj 4 MG IV Q6H PRN for Nausea for 3 Days Oxycodone/Acetaminophen 5MG/325MG (Percocet 5MG/325MG) Tab 1 TAB PO Q4H PRN for Pain for 3 Days, TAB PAIN Continued Medications: Naproxen (Aleve) 220 Mg Tab 220 MG PO UD PRN for Pain, TAB Referrals At Discharge Follow up Referrals: Surgery Referral - Within 1 Week with Manjula Dumont MD Discharge Exam REVIEW OF SYSTEMS: General/Constitutional: Denies fever/chills, fatigue, weakness ENT: Denies visual changes, nasal drainage, hearing loss, trouble swallowing Cardiovascular: Denies chest pain, palpitations, edema Respiratory: Denies cough, sputum, SOB, wheezing, orthopnea GI: +abdominal pain - incision site - well controlled/minimal; Denies nausea, vomiting, constipation, diarrhea, melena/hematochezia : Denies dysuria, frequency, hematuria Musculoskeletal: Denies joint/muscle aches, weakness, swelling Neurologic: Denies dizziness/lightheadedness, numbness/tingling, weakness Psychiatric: Deferred Endocrine: Deferred Hematologic/Lymphatic: Denies bleeding/clotting abnormalities Skin: Denies rash, itch, new skin changes, easy bruising Allergy/Immunologic: Deferred PHYSICAL EXAM:: General Appearance: WDWN in NAD who is A&O x 3 HEENT: Head is normocephalic/atraumatic; Hearing grossly intact; Mucous membranes moist; Pharynx negative for exudate/lesions Neck: Supple; Trachea midline; Neg JVD; Neg lymphadenopathy Heart: RRR with no M/G/R Lungs: CTA in all lung cardenas bilaterally; Respirations unlabored; Neg accessory muscle use Abdomen: Soft, non-distended; Positive BS x 4 quadrants; incisions with dressing clean/dry/intact Extremities: Capillary refill < 2 seconds; Neg cyanosis or edema Neurological: Speech clear; Gross motor/sensory function intact; Neg focal neurologic deficits Psychiatric: Appropriate mood/affect Skin: Normal Color; Warm/Dry; Neg rashes, ecchymosis, lacerations/ulcerations Hospital Course ADMISSION: 41yo male with h/o subtotal cholecystectomy in 10/2016 who presents with abdominal pain that awoke him about 0200 this AM. The pain was located in the high epigastric area and radiated to the back/scapula area. It was associated with nausea. He took aleve for the pain and unfortunately, about 0330, he had emesis. The pain has been constant since that time and feels quite similar to when he had his biliary pain last year. No chest pain or dyspnea. No fever or chills. He and his family ate at a fast food restaurant last pm. HOSPITAL COURSE: Mr. Parson is S/P Subtotal Cholecystectomy (Oct 2016) who was admitted for acute biliary colic with imaging revealed cholelithiasis in remaining portion of gallbladder with mild cholecystitis. Mild elevations in AST and ALT with elevated total bilirubin. LFTs improved but total bilirubin remained elevated. Consideration for Gilbert's syndrome is possible. He is S/P Lap Cholecystectomy for gallbladder remnants on 03/11/17. He is hemodynamically stable and pain is adequately controlled. He was discharged with short course of Percocet 5/325 mg PRN and Zofran PRN. Instructed to follow-up with Dr. Dumont in General Surgery in one week. Patient is optimal for discharge home. Total Time Spent: Greater than 30 minutes This includes examination of the patient, discharge planning, medication reconciliation, and communication with other providers. Discharge Instructions Please refer to the electronic Patient Visit Report (Discharge Instructions) for additional information.
== END 2017-03-11 12:18 | disposition home or self-care (01) | DRG 419 ==
LOC: ENRESERVDT → ENRESERVTM → C.EDB 07:18 → C.3E 10:59
PROVIDERS: ADMIT Internal Medicine; ATTEND Internal Medicine
PROC: 0FT44ZZ Resection of Gallbladder, Percutaneous Endoscopic Approach (ICD-10-PCS; principal; 2017-03-10 07:15)
DX: K80.00 Calculus of gallbladder with acute cholecystitis without obstruction (principal); F17.200 Nicotine dependence, unspecified, uncomplicated; J45.909 Unspecified asthma, uncomplicated; R16.1 Splenomegaly, not elsewhere classified